=== PATIENT | female | born 1960 | race Caucasian/White ===

== ENCOUNTER 2018-02-15 11:32 | Outpatient (CLI) | payer OTHER | END 2018-02-15 11:33 | disposition home or self-care (01) | LOC: BICMAMMO 11:32 | PROVIDERS: ATTEND Obstetrics & Gynecology | DX: Z12.31 Encounter for screening mammogram for malignant neoplasm of breast (principal) | CPT/HCPCS: 77063; 77067 ==

== ENCOUNTER 2021-02-16 13:51 | Outpatient (CLI) | payer BC, OTHER | END 2021-02-16 13:52 | disposition home or self-care (01) | LOC: BICMAMMO 13:51 | PROVIDERS: ATTEND Obstetrics & Gynecology | DX: Z12.31 Encounter for screening mammogram for malignant neoplasm of breast (principal); Z80.3 Family history of malignant neoplasm of breast | CPT/HCPCS: 77063; 77067 ==